=== PATIENT | female | born 2000 | race Caucasian/White ===

== ENCOUNTER 2019-01-09 10:47 | Emergency (ER) | payer BC ==
[2019-01-09 10:52] VITALS: BP 132/75
--- NOTE | 2019-01-09 10:59 | ER Document Report ---
ED Medical Screen (RME) - General Chief Complaint: Asthma Exacerbation Stated Complaint: DIFFICULTY BREATHING Time Seen by Provider: 01/09/19 10:57 Mode of Arrival: Ambulatory Information source: Patient Notes: 18-year-old female presents to ED for complaint of shortness of breath and having an asthma attack. Her sats are 100% respirations are regular unlabored. Lung sounds clear to auscultation all lobes patient is very shaky. She states she is used her albuterol inhaler 6 times. Patient is here on vacation. I have greeted and performed a rapid initial assessment of this patient. A comprehensive ED assessment and evaluation of the patient, analysis of test results and completion of medical decision making process will be conducted by an additional ED providers. Dictation of this chart was performed using voice recognition software; therefore, there may be some unintended grammatical errors. TRAVEL OUTSIDE OF THE [place] IN LAST 30 DAYS: No - Related Data Allergies/Adverse Reactions: Estrogens Allergy (Verified 01/09/19 10:49) Past Medical History Pulmonary Medical History: Reports: Hx Asthma Renal/ Medical History: Denies: Hx Peritoneal Dialysis Physical Exam - Vital signs Vitals: Temp Pulse Resp BP Pulse Ox 98.7 F 93 H 28 H 132/75 H 100 01/09/19 10:49 01/09/19 10:49 01/09/19 10:49 01/09/19 10:49 01/09/19 10:49 Course - Vital Signs Vital signs: Temp Pulse Resp BP Pulse Ox 98.7 F 93 H 28 H 132/75 H 100 01/09/19 10:49 01/09/19 10:49 01/09/19 10:49 01/09/19 10:49 01/09/19 10:49
[2019-01-09] MEDS ORDERED: PREDNISONE 20 MG TABLET PO ONE (11:18)
--- NOTE | 2019-01-09 11:27 | RADIOLOGY REPORT (SQ) ---
EXAM DESCRIPTION: CHEST 2 VIEWS COMPLETED DATE/TIME: 01/09/2019 11:12 am REASON FOR STUDY: Short of breath COMPARISON: None. TECHNIQUE: Frontal and lateral radiographic views of the chest acquired. NUMBER OF VIEWS: Two view. LIMITATIONS: None. FINDINGS: LUNGS AND PLEURA: No opacities, masses or pneumothorax. No pleural effusion. MEDIASTINUM AND HILAR STRUCTURES: No masses or contour abnormalities. HEART AND VASCULAR STRUCTURES: Heart normal size. No evidence for failure. BONES: No acute findings. HARDWARE: None in the chest. OTHER: No other significant finding. IMPRESSION: NO SIGNIFICANT RADIOGRAPHIC FINDING IN THE CHEST. TECHNICAL DOCUMENTATION: JOB ID: [id number] [employer]- All Rights Reserved Reading location - IP/workstation name: [email or web address]
--- NOTE | 2019-01-09 12:26 | ER Document Report ---
ED General - General Chief Complaint: Asthma Exacerbation Stated Complaint: DIFFICULTY BREATHING Time Seen by Provider: 01/09/19 10:57 Mode of Arrival: Ambulatory Notes: Patient is a 18-year-old female presents to the emergency department for generalized respiratory distress. Patient states for the last 24 hours she has noticed that her "asthma is getting worse." States she took her an asthma inhaler once yesterday without a spacer but states today she felt as though she could not breathe so she took her albuterol inhaler 6 times total within a span of 20 minutes. Patient states she felt very lightheaded and jittery after that which presented her to the emergency room. Patient is denying any generalized cough, congestion, fever. Denies any chest pain or respiratory distress at this time. Patient does not use a spacer with her albuterol inhaler. Past medical history: Asthma, depression Medications: Albuterol, Celexa Allergies: None TRAVEL OUTSIDE OF THE [place] IN LAST 30 DAYS: No - Related Data Allergies/Adverse Reactions: Estrogens Allergy (Verified 01/09/19 10:49) Past Medical History - General Information source: Patient - Social History Smoking Status: Never Smoker Family History: Reviewed & Not Pertinent Patient has suicidal ideation: No Patient has homicidal ideation: No Pulmonary Medical History: Reports: Hx Asthma Renal/ Medical History: Denies: Hx Peritoneal Dialysis Review of Systems - Review of Systems Constitutional: denies: Fever EENT: See HPI Cardiovascular: See HPI Respiratory: See HPI Gastrointestinal: No symptoms reported Genitourinary: No symptoms reported Female Genitourinary: No symptoms reported Musculoskeletal: No symptoms reported Skin: No symptoms reported Hematologic/Lymphatic: No symptoms reported Neurological/Psychological: No symptoms reported Physical Exam - Vital signs Vitals: Temp Pulse Resp BP Pulse Ox 98.7 F 93 H 28 H 132/75 H 100 01/09/19 10:49 01/09/19 10:49 01/09/19 10:49 01/09/19 10:49 01/09/19 10:49 - Notes Notes: GENERAL: Alert, interacts well. No acute distress. HEAD: Normocephalic, atraumatic. EYES: Pupils equal, round, and reactive to light. Extraocular movements intact. ENT: Oral mucosa moist, tongue midline. Nares patent, TM's intact, nonerythematous, nonbulging bilaterally. Pharynx within normal limits no palatal petechiae noted. NECK: Full range of motion. Supple. Trachea midline. LUNGS: Clear to auscultation bilaterally, no wheezes, rales, or rhonchi. No respiratory distress. HEART: Regular rate and rhythm. No murmur ABDOMEN: Soft, non-tender. Non-distended. Bowel sounds present in all 4 quadrants. EXTREMITIES: Moves all 4 extremities spontaneously. No edema, normal radial and dorsalis pedis pulses bilaterally. No cyanosis. BACK: no cervical, thoracic, lumbar midline tenderness. No saddle anesthesia, normal distal neurovascular exam. NEUROLOGICAL: Alert and oriented x3. Normal speech. cranial nerves II through XII grossly intact. PSYCH: Normal affect, normal mood. SKIN: Warm, dry, normal turgor. No rashes or lesions noted. Course - Re-evaluation Re-evalutation: 01/09/19 12:24 Patient continues throughout her stay in the emergency department to be without respiratory distress. Lung sounds clear and equal in all stein, no respiratory distress. Chest x-ray ordered by [facility] provider shows no signs of pneumonia, pneumothorax, rib fracture. Discussed with patient proper use of albuterol i nhaler also with spacer. Discussed use of steroids and follow-up with primary care provider. Patient stable for discharge. - Vital Signs Vital signs: Temp Pulse Resp BP Pulse Ox 98.7 F 93 H 28 H 132/75 H 100 01/09/19 10:49 01/09/19 10:49 01/09/19 10:49 01/09/19 10:49 01/09/19 10:49 Discharge - Discharge Clinical Impression: Asthma Qualifiers: Asthma severity: mild Asthma persistence: unspecified Asthma complication type: uncomplicated Qualified Code(s): J45.909 - Unspecified asthma, uncomplicated Condition: Stable Disposition: HOME, SELF-CARE Instructions: Asthma ([facility]), Inhaled Bronchodilators ([facility]) Additional Instructions: As we discussed you have been seen and treated in the emergency department for potential asthma attack. At this point time your lung sounds clear and equal in all stein. As we discussed please use steroids as prescribed and also your albuterol inhaler as prescribed. Please also follow-up with your primary care provider in the next 24 to 48 hours. Return to the emergency room for any other concerns. Prescriptions: Prednisone [Deltasone 20 mg Tablet] 3 tab PO DAILY 5 Days tablet
== END 2019-01-09 12:37 | disposition home or self-care (01) ==
LOC: ER 10:47
DX: J45.909 Unspecified asthma, uncomplicated (principal); R42 Dizziness and giddiness; Z79.899 Other long term (current) drug therapy
CPT/HCPCS: 99284; 71046; J7512